=== PATIENT | female | born 1945 | race Caucasian/White ===

== ENCOUNTER 2018-07-23 12:57 | Day surgery (SDC) | payer MEDICARE, OTHER ==
[2018-07-22 11:48] VITALS: BMI 28.3
[2018-07-23] MEDS ORDERED: Ondansetron PF 4 MG/2 ML Vial ONE ×2 (13:56→14:46)
[2018-07-23] MEDS ORDERED: Ketorolac Tromethamine 30 MG/ML VIAL ONE (13:56)
[2018-07-23] MEDS ORDERED: Midazolam HCl 2 mg/2 ml Vial ONE (14:45)
[2018-07-23] MEDS ORDERED: Meperidine HCl/PF 25 MG/ML VIAL ONE (14:45)
--- NOTE | 2018-07-23 16:01 | MRI ---
MRI LEFT KNEE WITHOUT IV CONTRAST: HISTORY: Posterolateral left-sided knee pain and popping. Posterior left knee pain. Locking of left knee. TECHNIQUE: Multiplanar, multisequence MRI examination of the left knee is performed. FINDINGS: Physiologic joint fluid. Some mild generalized tricompartment cartilage loss, particularly for age. The medial meniscus shows some mild intrasubstance degenerative signal and mild free edge blunting, but no evidence for an acute meniscal tear. Complex tear of the lateral meniscus, including a probab le flap tear of the posterior root of the posterior horn, as well as a prominent horizontal cleavage type tear involving the body and anterior horn, with some intrameniscal and minimal parameniscal cyst ic change of the anterior horn. Anterior and posterior cruciate ligaments appear intact. Collateral ligament complexes are unremarkable. Quadriceps and patellar tendons are intact. No acute osteocho ndral defect or significant abnormal marrow signal. IMPRESSION: 1. Complex lateral meniscal tear, including some intrameniscal and minimal parameniscal cystic osman es at the level of the anterior horn. 2. Physiologic joint fluid but with a small amount of fluid in the popliteal fossa. 3. No evidence for other significant acute internal derangement. POS: [facility]
== END 2018-07-23 16:13 | disposition home or self-care (01) ==
LOC: SDC/OP 12:57
PROVIDERS: ATTEND Family Medicine Sports Medicine
DX: S83.272A Complex tear of lateral meniscus, current injury, left knee, initial encounter (principal)
CPT/HCPCS: J1885; J2175; J2250; J2405

== ENCOUNTER 2019-04-07 10:21 | Day surgery (SDC) | payer MEDICARE, OTHER ==
[2019-04-04 11:11] VITALS: BMI 28.3
[~2019-04-07 10:21] MED LIST: Dexamethasone 20 MG/5 ML VIAL ONE; Lidocaine 1% PF 5 ML VIAL ONE; Ondansetron PF 4 MG/2 ML Vial ONE; PROPOFOL 200 MG/20 ML VIAL ONE
--- NOTE | 2019-04-07 14:02 | MRI ---
MRI LOWER EXTREMITY JOINT LEFT WITHOUT CONTRAST: History: Medial meniscal tear. Comparison: MRI July 23, 2018. Findings: Medial meniscus: Mild free edge fraying without displaced tear. Lateral meniscus: Loss of volume lateral meniscal body and posterior horn with 2-3 mm lateral gutter extrusion. This could be on the basis of partial meniscectomy change. The MCL and LCL are intact. ACL and PCL are intact. Extensor mechanism: Quadriceps tendon, patella, and patellar tendon are intact. Cartilage: Patellofemoral compartment: Few 50-75% chondral fissures of the central trochlea. No full-thickness d efect. Medial compartment: Multifocal 50% chondral loss weightbearing surface medial femoral condyle and med ial tibial plateau. Lateral compartment: 50-75% chondral loss throughout the weightbearing surface. No full-thickness def ect. Soft tissues: Moderate joint effusion. No free bodies are appreciated. Mild synovitis in the posterio r lateral gutter Moderate popliteal cyst without evidence of dehiscence. Muscles: Muscle signal and bulk is normal. Bones: Moderate lateral compartment osteophyte formation, slightly enlarged from the comparison exam. Impression: 1. Loss of volume lateral meniscal body and posterior horn may be sequelae of meniscectomy change giv en recent surgical history. 2. Enlarging lateral compartment osteophyte formation with gutter extrusion of the lateral meniscus l ikely on the basis of loss of normal hoop stress. 3. Moderate enlarging joint effusion. 4. Enlarging popliteal cyst without evidence of dehiscence. Transcribed Date/Time: 04/07/2019 2:26 PM
== END 2019-04-07 15:06 | disposition home or self-care (01) ==
LOC: SDC/OP 10:21
PROVIDERS: ATTEND Orthopaedic Surgery
DX: S83.242A Other tear of medial meniscus, current injury, left knee, initial encounter (principal); M71.22 Synovial cyst of popliteal space [Baker], left knee; E11.9 Type 2 diabetes mellitus without complications; M19.90 Unspecified osteoarthritis, unspecified site; Z79.82 Long term (current) use of aspirin; Z79.84 Long term (current) use of oral hypoglycemic drugs; Z79.899 Other long term (current) drug therapy; Z88.2 Allergy status to sulfonamides; Z98.890 Other specified postprocedural states
CPT/HCPCS: J1100; J2001; J2405; J2704